=== PATIENT | male | born 1995 | race Asian ===

== ENCOUNTER → 2019-03-24 15:22 | Outpatient (CLI) | payer OTHER, SELFPAY ==
--- NOTE | 2019-03-24 | DI.MRI.S_ITS ---
PROCEDURE: MR LUMBAR SPINE WO CON INDICATIONS: Low back pain TECHNIQUE: Noncontrast sagittal T1 spin echo and T2 fast echo, sagittal STIR, axial T1 and T2 fast spin echo through the lumbar spine. In cases with scoliosis, additional coronal T2 fast spin echo may be performed. COMPARISON: None. FINDINGS: Image quality: Excellent. Alignment and Curvature: No plain films are available for comparison, for numbering purposes. Thus, for the purposes of this examination, 5 lumbar type vertebral bodies will be presumed, as denoted on the montage panel. This should be confirmed and correlated with plain films, prior to any lumbar spinal intervention. There is loss of normal lumbar lordosis. Bone Marrow: Marrow is of normal overall signal. No acute vertebral body compression fractures. Minimal reactive signal within the endplate adjacent to the L4-L5 intervertebral disc. Spinal Cord: Conus medullaris terminates at the mid L1 level. Visualized cord demonstrates normal signal and size. Paraspinous Soft Tissues: No paravertebral masses. L1-L2: Normal appearance. L2-L3: Normal appearance. L3-L4: Normal appearance. L4-L5: Mild disc height loss and desiccation. Mild diffuse disc bulge with superimposed left paracentral disc protrusion. Mild facet and ligament flavum hypertrophy. Moderate canal stenosis. Mild left greater than right foraminal stenosis. Compression and posterior deviation of the left L5 nerve root within the lateral recess. L5-S1: Normal appearance. IMPRESSION: 1. Moderate canal stenosis and left L5 nerve root compression and deviation at the L4-L5 disc space level secondary to disc protrusion. 2. 5 lumbar type vertebral bodies were presumed for the current report. Plain films of the lumbar spine are recommended for confirmation, prior to any lumbar spinal intervention. Dictated by: Jamshid Najera M.D. on 03/24/2019 at 16:22 Approved by: Jamshid Najera M.D. on 03/24/2019 at 16:25
== END ==
PROVIDERS: Visit Provider Family Medicine
DX: M51.26 Other intervertebral disc displacement, lumbar region (principal); M48.061 Spinal stenosis, lumbar region without neurogenic claudication
CPT/HCPCS: 72148